=== PATIENT | male | born 2000 | race Caucasian/White ===

== ENCOUNTER 2018-02-18 06:15 | Emergency (ER) | payer OTHER ==
[~2018-02-18] VITALS: Ht 188 cm; Wt 76.3 kg
[2018-02-18 07:25] VITALS: BP 132/68
== END 2018-02-18 07:25 | disposition home or self-care (01) ==
LOC: ED 06:15
DX: S62.92XA Unspecified fracture of left hand, initial encounter for closed fracture (principal); W23.0XXA Caught, crushed, jammed, or pinched between moving objects, initial encounter; Y93.89 Activity, other specified; Y92.89 Other specified places as the place of occurrence of the external cause; Y99.8 Other external cause status
CPT/HCPCS: A4570; Q0092